=== PATIENT | male | born 1960 | race American Indian/Alaskan Native ===

== ENCOUNTER 2017-12-15 06:33 | Day surgery (SDC) | payer BC ==
[~2017-12-15] VITALS: Ht 175.3 cm; Wt 108.2 kg
[~2017-12-15 06:33] MED LIST: ASPI325 PO; ASPI325EC PO; BP MED; FENO160 PO; HYDCHL25 PO; IBUP800 PO; LISI20 PO; MILK THISTLE PO; OMEGA 3-6-9 11200 MG PO; OXYACE5T PO; SAWPALMETTO PO; TAMS.4ER PO; TRAM50 PO; VITAMIN D35000 UNIT PO; Viagra100 MG PO; Vitamin C1000 M1 PO; WARF5 PO; ZINC15 PO; [UNRECOGNIZED DRUG - OTHER]; [UNRECOGNIZED DRUG - OTHER] PO
== END 2017-12-15 09:00 | disposition home or self-care (01) ==
LOC: ORSCSDS 06:33
PROVIDERS: Surgery
PROC: 0DBM8ZX Excision of Descending Colon, Via Natural or Artificial Opening Endoscopic, Diagnostic (ICD-10-PCS; principal; 2017-12-15 08:00)
PROC: 0DBK8ZX Excision of Ascending Colon, Via Natural or Artificial Opening Endoscopic, Diagnostic (ICD-10-PCS; principal; 2017-12-15 08:00)
PROC: 0DBH8ZX Excision of Cecum, Via Natural or Artificial Opening Endoscopic, Diagnostic (ICD-10-PCS; principal; 2017-12-15 08:00)
DX: Z86.010 Personal history of colon polyps (principal); D12.0 Benign neoplasm of cecum; D12.2 Benign neoplasm of ascending colon; D12.4 Benign neoplasm of descending colon; K57.30 Diverticulosis of large intestine without perforation or abscess without bleeding; I10 Essential (primary) hypertension; Z79.82 Long term (current) use of aspirin; Z79.899 Other long term (current) drug therapy
CPT/HCPCS: 88305; J0330; J1980; J2405; J7120

== ENCOUNTER 2019-11-07 17:47 | Emergency (ER) | payer OTHER ==
[~2019-11-07] VITALS: Ht 172.7 cm; Wt 106.6 kg
[2019-11-07] MEDS ORDERED: XARELTO20 MG PO (19:20)
== END 2019-11-07 20:35 | disposition home or self-care (01) ==
LOC: VAS 17:47 → ER 17:47 → EDSTATUS 18:00 → VAS 18:00 → ER 20:35
DX: I82.432 Acute embolism and thrombosis of left popliteal vein (principal); I82.452 Acute embolism and thrombosis of left peroneal vein; I82.412 Acute embolism and thrombosis of left femoral vein; I82.532 Chronic embolism and thrombosis of left popliteal vein; I82.552 Chronic embolism and thrombosis of left peroneal vein; I82.512 Chronic embolism and thrombosis of left femoral vein; Z88.5 Allergy status to narcotic agent; Z91.09 Other allergy status, other than to drugs and biological substances; Z88.8 Allergy status to other drugs, medicaments and biological substances; Z79.82 Long term (current) use of aspirin; Z79.899 Other long term (current) drug therapy
CPT/HCPCS: 93971; 99283

== ENCOUNTER 2021-01-15 19:30 | Emergency (ER) | payer OTHER, BC ==
[~2021-01-15] VITALS: Ht 175.3 cm; Wt 106.6 kg
[~2021-01-15 19:30] MED LIST changes: +XARELTO20 MG PO
== END 2021-01-16 00:22 | disposition home or self-care (01) ==
LOC: ER 19:30
DX: H61.22 Impacted cerumen, left ear (principal); I10 Essential (primary) hypertension; Z88.5 Allergy status to narcotic agent; Z88.8 Allergy status to other drugs, medicaments and biological substances; Z91.041 Radiographic dye allergy status; Z79.899 Other long term (current) drug therapy; Z86.718 Personal history of other venous thrombosis and embolism
CPT/HCPCS: 69210; 99282; A9270

== ENCOUNTER 2021-08-21 07:47 | Day surgery (SDC) | payer OTHER, BC ==
[~2021-08-21] VITALS: Ht 175.3 cm; Wt 112.2 kg
[~2021-08-21 07:47] MED LIST changes: +ATOR40TA PO; +Aspir 8181 MG PO; +HYDROCHLOROTH12.5 MG PO; +LORA10ER; +Lopressor 25 mg25 MG PO; +Norco 5-325 Ta1 EACH PO; +PROSTIN VR500 MCG/3 IV; +RESTORIL15 M1 PO
== END 2021-08-21 09:41 | disposition home or self-care (01) ==
LOC: ORSCSDS 07:47
PROVIDERS: Surgery
PROC: 0DBH8ZX Excision of Cecum, Via Natural or Artificial Opening Endoscopic, Diagnostic (ICD-10-PCS; principal; 2021-08-21 09:00)
DX: Z12.11 Encounter for screening for malignant neoplasm of colon (principal); Z86.010 Personal history of colon polyps; D12.0 Benign neoplasm of cecum; G47.33 Obstructive sleep apnea (adult) (pediatric); K57.30 Diverticulosis of large intestine without perforation or abscess without bleeding; I10 Essential (primary) hypertension; E66.9 Obesity, unspecified; Z68.36 Body mass index [BMI] 36.0-36.9, adult; Z79.01 Long term (current) use of anticoagulants; Z79.82 Long term (current) use of aspirin; Z79.899 Other long term (current) drug therapy
CPT/HCPCS: 88305; J2704; J7120

== ENCOUNTER 2023-02-15 09:20 | Day surgery (SDC) | payer OTHER ==
[~2023-02-15] VITALS: Ht 175.3 cm; Wt 117.3 kg
[2023-02-15] VITALS (16 sets, daily range): BP systolic 103–144; BP diastolic 58–91
[~2023-02-15 09:20] MED LIST changes: +LOSA25 PO
[2023-02-15] MEDS ORDERED: Flonase 0.05% N16 GM (18:04)
[2023-02-15] MEDS ORDERED: MODA200 PO (18:05)
[2023-02-15] MEDS ORDERED: LORA10ER PO (18:09)
--- NOTE | 2023-02-15 19:19 | NUR ---
SHIFT SUMMARY NEW ADMIT TO UNIT POD [address] CONTEH. ALERT, ORIENTED. POST OP VSS WITH IRISH HR TRENDING UP TO 50S AND 60S. HX KALEB, HOME CPAP AT BEDSIDE, RT ORDERS PLACED. TOLERATING REGULAR DIET AND LIQUIDS. ROUTINE IV FLUID RUNNING. SPINAL, NOT UP YET, NO VOID AT THIS TIME. MEDICATED FOR PAIN PER EMAR. LEFT KNEE WITH AQUACEL C/D/I, MOVES TOES AND ANKLE. REPORT GIVEN TO LEGAL INSTRUCTOR RN.
--- NOTE | 2023-02-16 05:20 | NUR ---
SHIFT SUMMARY NO ACUTE CHANGES OVERNIGHT, POD 0 L TOTAL KNEE. PT HAS BEEN UP AND AMBULATING AND HAS VOIDED. TOLERATING PO INTAKE, NO EPISODES OF N/V. PAIN HAS BEEN WELL CONTROLLED PER EMAR ORDERS. PT INCONTINENT OF URINE AND SOLIED HIS BEVERLY HOSE AND YAMILET WRAP ON AFFECTED KNEE WHEN AMBULATING TO USE THE BATHROOM. AQUACEL UNDERNEATH YAMILET DRESSING WAS DRY AND INTACT. WIPED LEG AND THE AREAS THAT WAS WET WITH URINE WITH WOUND CLEANSER. DID NOT REMOVE SURGICAL AQUACEL DRESSING. CLEAN YAMILET WRAP AND BEVERLY HOSE APPLIED. NOTIFIED MALE IMPERSONATOR RONDA. POST OP VITALS STABLE. DISCHARGE TODAY, BED IN LOWEST POSITION, CALL LIGHT WITHIN REACH.
[2023-02-16 06:05] VITALS: BP 152/85
[2023-02-16 06:36] LABS: BASOPHILS ABSOLUTE AUTO 0.02 K/mm3 (0.00-0.23); BASOPHILS PERCENT AUTO 0 % (0-2); EOSINOPHILS PERCENT AUTO 0 % (0-6); Hematocrit 49.3 % (37.0-53.0); Hemoglobin 16.9 g/dL (13.5-17.5); IMMATURE GRAN ABSOLUTE AUTO 0.05 K/mm3 (0.00-0.10); IMMATURE GRAN PERCENT AUTO 0 % (0-1); LYMPHOCYTES ABSOLUTE AUTO 0.92 K/mm3 (0.84-5.20); LYMPHOCYTES PERCENT AUTO 7 % (21-46); MONOCYTES PERCENT AUTO 4 % (4-13); Mean Corpuscular HGB 27.8 pg (26.0-34.0); Mean Corpuscular HGB Conc 34.3 g/dL (31.5-36.5); Mean Corpuscular Volume 81 fL (80-100); Mean Platelet Volume 8.8 fL (9.1-12.4); NEUTROPHILS ABSOLUTE AUTO 12.09 K/mm3 (1.96-9.15); NEUTROPHILS PERCENT AUTO 88 % (41-73); Platelet Count 231 K/mm3 (150-400); RDW Coefficient Variation 12.2 % (11.7-14.2); RDW Standard Deviation 35.7 fL (35.1-46.3); Red Blood Cell Count 6.09 M/mm3 (4.30-5.90); White Blood Cell Count 13.68 K/mm3 (4.00-11.30)
[2023-02-16 06:56] VITALS: BP 153/80
[2023-02-16 07:06] LABS: Bun/Creatinine Ratio 20.2 (12.0-20.0); Calcium, Blood 8.1 mg/dL (8.5-10.1); Creatinine, Blood 0.89 mg/dL (0.60-1.20); Potassium, Blood 4.1 mmol/L (3.5-5.5)
[2023-02-16] MEDS ORDERED: Percocet 5-3251 EACH PO (10:08)
--- NOTE | 2023-02-16 11:50 | NUR ---
DISCHARGE SUMMARY PT A&OX4, VSS/RA, JUAN PABLO PO, VOIDING/ATTENDS-BASELINE, PAIN MANAGED, AMB SBA FWW GB, IV DC'D. DC INS PROVIDED. PT AND REP UNDERSTANDING THOSE INSTRUCTIONS. LEFT FLOOR VIA WC WITH VELVET WEAVER TO GO HOME WITH WITH ALL PERSONAL POSSESSIONS INCLUDING DC PACKET, POLAR LATASHA, NARC SCRIPT, AQUACEL DRESSINGS.
== END 2023-02-16 10:45 | disposition home or self-care (01) ==
LOC: ORSCMMR 09:20 → ORD 11:00 → ORSCMMR 11:00 → ORD 12:00 → SURS 17:26 → ORSCMMR 02-16 10:45
PROVIDERS: Orthopaedic Surgery
PROC: 0SRD0JA Replacement of Left Knee Joint with Synthetic Substitute, Uncemented, Open Approach (ICD-10-PCS; principal; 2023-02-15 11:00)
PROC: 8E0Y0CZ Robotic Assisted Procedure of Lower Extremity, Open Approach (ICD-10-PCS; principal; 2023-02-15 11:00)
DX: M17.12 Unilateral primary osteoarthritis, left knee (principal); E66.9 Obesity, unspecified; Z68.37 Body mass index [BMI] 37.0-37.9, adult; I10 Essential (primary) hypertension; E78.5 Hyperlipidemia, unspecified; Z79.899 Other long term (current) drug therapy; Z79.82 Long term (current) use of aspirin
CPT/HCPCS: 27447; 20985; S2900; 36415; 73560-LT; 80048; 85025; 94660; 94762; 97110; 97116; 97161; 97530; A9270; C1776; J0171; J0690; J0735; J1100; J1885; J2250; J2405; J2704; J2795; J3010; J7120

== ENCOUNTER 2023-06-14 08:06 | Day surgery (SDC) | payer OTHER ==
[~2023-06-14] VITALS: Ht 175.3 cm; Wt 118.9 kg
[2023-06-14] VITALS (17 sets, daily range): BP systolic 105–143; BP diastolic 60–117
[~2023-06-14 08:06] MED LIST changes: +Flonase 0.05% N16 GM; +LORA10ER PO; +MODA200 PO; +Percocet 5-3251 EACH PO
--- NOTE | 2023-06-14 11:43 | NUR ---
06/14/23 1143 Missy Hale SPINAL NERVE BLOCK COMPLETED BY DR ARAYA AFTER ENTRY TO THE OR. PT TOLERATED WELL.
--- NOTE | 2023-06-14 20:01 | NUR ---
SHIFT SUMMARY ONCE SPINAL WORE OFF, PT WAS ABLE TO GET UP TO CHAIR FOR DINNER. PAIN SPIKED ONCE BUT FEELS BETTER. EATING, DRINKING, & VOIDING (INCONTENENT @ BASELINE). GILLIAN TENORIO.
[2023-06-15 03:18] VITALS: BP 119/72
[2023-06-15 04:48] LABS: BASOPHILS ABSOLUTE AUTO 0.03 K/mm3 (0.00-0.23); BASOPHILS PERCENT AUTO 0 % (0-2); EOSINOPHILS ABSOLUTE AUTO 0.12 K/mm3 (0.00-0.68); EOSINOPHILS PERCENT AUTO 2 % (0-6); Hematocrit 42.1 % (37.0-53.0); Hemoglobin 13.9 g/dL (13.5-17.5); IMMATURE GRAN ABSOLUTE AUTO 0.02 K/mm3 (0.00-0.10); IMMATURE GRAN PERCENT AUTO 0 % (0-1); LYMPHOCYTES PERCENT AUTO 17 % (21-46); MONOCYTES ABSOLUTE AUTO 0.61 K/mm3 (0.16-1.47); MONOCYTES PERCENT AUTO 9 % (4-13); Mean Corpuscular Volume 82 fL (80-100); Mean Platelet Volume 9.2 fL (9.1-12.4); NEUTROPHILS ABSOLUTE AUTO 5.02 K/mm3 (1.96-9.15); NEUTROPHILS PERCENT AUTO 72 % (41-73); Platelet Count 212 K/mm3 (150-400); RDW Coefficient Variation 12.4 % (11.7-14.2); RDW Standard Deviation 37.2 fL (35.1-46.3); Red Blood Cell Count 5.14 M/mm3 (4.30-5.90)
--- NOTE | 2023-06-15 04:54 | NUR ---
SHIFT SUMMARY PATIENT AOX4, POD1 R JAMAL. AQUACEL TO R HIP C/D/I. ICE PACK IN PLACE SCDS AND BEVERLY HOSE ON. PATIENT MEDICATED PER EMAR FOR PAIN. AMBULATED IN HALLS WITH 1 ASSIST CAITLIN STRINGERW. USING URINAL IN BATHROOM TO VOID. TOLERATING PO INTAKE. AWAITING THERAPY THIS AM. VSS, CALL LIGHT IN REACH.
[2023-06-15 05:15] LABS: Bun/Creatinine Ratio 17.2 (12.0-20.0); Calcium, Blood 7.9 mg/dL (8.5-10.1); Creatinine, Blood 0.87 mg/dL (0.60-1.20); Potassium, Blood 4.1 mmol/L (3.5-5.5)
[2023-06-15 07:32] VITALS: BP 120/68
[2023-06-15] MEDS ORDERED: OXYC5 PO (08:43)
[2023-06-15] MEDS ORDERED: Percocet 5-3251 EACH PO (09:06)
--- NOTE | 2023-06-15 10:58 | NUR ---
DISCHARGE PT DISCHARGED HOME FROM UNIT AT APROX 1058. PT GIVEN WRITTEN AND VERBAL DC INSTRUCTIONS AND VERBALIZED UNDERSTANDING OF THESE INSTRUCTIONS. IV REMOVED, TOLERATED WELL. WC TO CAR.
== END 2023-06-15 17:18 | disposition home or self-care (01) ==
LOC: ORSCMMR 08:06 → ORD 09:15 → SURS 13:37 → ORSCMMR 06-15 17:18
PROVIDERS: Orthopaedic Surgery
PROC: 0SR90JZ Replacement of Right Hip Joint with Synthetic Substitute, Open Approach (ICD-10-PCS; principal; 2023-06-14 11:30)
DX: M16.11 Unilateral primary osteoarthritis, right hip (principal); Z96.652 Presence of left artificial knee joint; Z86.718 Personal history of other venous thrombosis and embolism; Z79.01 Long term (current) use of anticoagulants; E66.9 Obesity, unspecified; E78.5 Hyperlipidemia, unspecified; I10 Essential (primary) hypertension; Z68.39 Body mass index [BMI] 39.0-39.9, adult; Z79.899 Other long term (current) drug therapy
CPT/HCPCS: 36415; 72170; 80048; 85025; 97110; 97116; 97162; A9270; C1776; J0171; J0690; J0735; J1885; J2250; J2371; J2704; J2795; J3010; J7120

== ENCOUNTER → 2023-09-23 | Outpatient (CLI) | payer OTHER ==
[~2023-09-23] MED LIST changes: +OXYC5 PO
== END ==
LOC: LAB SHORT 13:17 → LAB 13:17
DX: R30.0 Dysuria (principal)
CPT/HCPCS: 87077; 87086; 87186